=== PATIENT | male | born 1955 | race Caucasian/White ===

== ENCOUNTER 2017-01-23 08:07 | Emergency (ER) | payer MEDICAID ==
[2017-01-23] MEDS ORDERED: LORazepam 2 MG/ML INJ ONE (08:14)
[2017-01-23 08:18] VITALS: TEMP 96.4
[2017-01-23] MEDS ORDERED: LORazepam 2 MG/ML INJ IVP ONE ×2 (08:18→08:23)
--- NOTE | 2017-01-23 08:28 | EDPHY ---
H & P Time Seen by Provider: 01/23/17 08:07 HPI/ROS: CHIEF COMPLAINT: Shaking and numb HISTORY OF PRESENT ILLNESS: 61-year-old man was bit by a wasp on his left 2nd toe this morning at 6:00 a.m.. He has had previous allergic reaction to wasp sting although never previously received epinephrine. He started feeling very shaky, laid down on the floor of his house to do deep breathing exercises, started feeling numbness and tingling in all 4 extremities and very shaky and was transported by EMS. Benadryl 50 mg by EMS prior to arrival. On arrival he says he is very shaky. Symptoms severe. Denies throat swelling or tongue swelling, trouble breathing, nausea vomiting or abdominal cramping. REVIEW OF SYSTEMS: Eye: no change in vision ENT: no sore throat Cardiac: no chest pain or syncope Pulmonary: no cough or SOB Abdomen: no vomiting, diarrhea, abdominal pain Musculoskeletal: no back pain Skin: Some sunburn from weed whacking yesterday, no urticaria Neuro: no headache Constitutional: no fever : no urinary symptoms A comprehensive 10 point review of systems is otherwise negative aside from elements mentioned in the history of present illness. 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 Social history: Alcohol daily, half bottle of wine last night, tobacco smoker. General Appearance: Alert and conversant, cooperative. Eyes: No scleral icterus. ENT, Mouth: Normal mucous membranes. No angioedema, uvula is midline. Respiratory: Normal respiratory effort, breath sounds equal, lungs are clear to auscultation. No wheezing. Cardiovascular: Regular rate and rhythm. Gastrointestinal: Abdomen is soft and non tender. Neurological: Alert and oriented x3. Normally conversant. Face symmetric, normal movement and sensation in all extremities. Skin: Patient has some redness first-degree sunburn on lower extremities and his face but no urticaria. At the site of the wasp sting there is no local swelling or redness or tenderness. Musculoskeletal: No peripheral edema and no joint swelling. Psychiatric: Moderately anxious and shaky. Emergency Department course/MDM: Does not appear to have signs of systemic insect envenomation or anaphylaxis. I think the most likely reason for his numbness and tingling in all 4 extremities is hyperventilation. He is anxious and hyperventilating on arrival. 2 mg IV Ativan given. 1342: Patient awakens, not hypoxic, no further shaking. His foot is examined and has a little bit of local swelling at the 2nd toe at the site of the insect sting. He does not have wheezing or angioedema or urticaria at this time. Ambulatory without ataxia. Normal voice. Smoking Status: Current every day smoker Constitutional: Initial Vital Signs Temperature (C) 35.8 C L 01/23/17 08:07 Heart Rate 81 01/23/17 08:07 Respiratory Rate 20 01/23/17 08:07 Blood Pressure 114/88 H 01/23/17 08:07 O2 Sat (%) 100 01/23/17 08:07 O2 Delivery Mode Room Air O2 (L/minute) 2 Allergies/Adverse Reactions: No Known Allergies Allergy (Verified 11/18/13 09:04) Home Medications: Medication Instructions Recorded Herbals/Supplements -Info Only 1 each PO DAILY 08/05/15 Promethazine HCl [Phenergan 25mg 12.5 mg PO Q8 PRN 08/05/15 (*)] Pantoprazole Sodium [Protonix 40mg 40 mg PO BID #60 tab 08/12/15 (*)] Medical Decision Making - Data Points Medications Given: Discontinued Medications Lorazepam (Ativan Injection) 1 mg IVP EDNOW ONE Stop: 01/23/17 08:19 Last Admin: 01/23/17 08:23 Dose: 1 mg Lorazepam (Ativan Injection) 1 mg IVP EDNOW ONE Stop: 01/23/17 08:24 Last Admin: 01/23/17 08:29 Dose: 1 mg Departure - Departure Disposition: Home, Routine, Self-Care Clinical Impression: Hyperventilation Insect sting Qualifiers: Encounter type: initial encounter Injury intent: undetermined intent Qualified Code(s): T63.484A - Toxic effect of venom of other arthropod, undetermined, initial encounter Condition: Good Instructions: Hyperventilation (ED), Insect Bite or Sting (ED) Referrals: [facility] KIMBLE,. [Clinic] - As per Instructions
[2017-01-23 13:15] VITALS: RESP 16
[2017-01-23 14:02] VITALS: BP 148/100; PULSE 85; O2SAT 94
== END 2017-01-23 14:01 | disposition home or self-care (01) ==
LOC: EDUNIT#
DX: R06.4 Hyperventilation (principal); T63.484A Toxic effect of venom of other arthropod, undetermined, initial encounter; F17.200 Nicotine dependence, unspecified, uncomplicated
CPT/HCPCS: 96374; J2060